=== PATIENT | male | born 1990 | race Caucasian/White ===

== ENCOUNTER 2025-06-06 10:39 | Outpatient (CLI) | payer OTHER, SELFPAY ==
--- NOTE | 2025-06-06 10:45 | XR_ITS ---
FINAL REPORT CLINICAL HISTORY: evaluate left foot pain COMPARISON: None FINDINGS: AP, oblique and lateral views of the left foot were obtained. There is no acute fracture or dislocation. The joint spaces are preserved. Soft tissues are unremarkable. IMPRESSION: No acute osseous abnormality of the left foot. Reviewed, Interpreted and Dictated by Mireille Mcfarland MD Transcribed by Yessy Cristina Authenticated and [facility]
== END 2025-06-06 23:59 | disposition home or self-care (01) ==
LOC: RAD 10:42
PROVIDERS: PCP Nurse Practitioner; Visit Provider Podiatrist
DX: M79.672 Pain in left foot (principal)
CPT/HCPCS: 73630